=== PATIENT | female | born 1945 | race Two or more races ===

== ENCOUNTER 2017-12-17 14:16 | Emergency (ER) | payer MEDICARE, OTHER ==
[~2017-12-17] VITALS: Ht 162.6 cm; Wt 77.1 kg
[~2017-12-17 14:16] MED LIST: LOSARTAN POTASS25 MG ORAL
--- NOTE | 2017-12-17 15:01 | Emergency Room Report ---
History of Present Illness General Chief Complaint: Lower Extremity Injury Source: Patient, Medical Record Present Illness HPI 72-year-old female presents to the emergency department complaining of 10 out of 10 in severity localized pain to the bilateral knees primarily the left knee as well as the left lateral tib-fib status post mechanical trip and fall yesterday. Patient reports history of arthritis in the left knee however she states she was not having symptoms prior. Patient reports that her knee feels very weak as if it is going to give out underneath her and HOW she fell. Patient denies bruises, open wounds or bleeding. Patient reports some mild swelling she states she has not taken any medication for her symptoms. Patient reports that her pain is exacerbated upon weight-bearing, walking and bending the knees. Patient denies midline neck or back pain. Denies numbness tingling or loss of sensation or gross motor movements of the extremities, incontinence of bowel or bladder. Denies CP, Palpitations, LOC, AMS, dizziness, Changes in Vision, weakness or a sudden severe headache. Allergies: Coded Allergies: No Known Allergies (Unverified , 08/22/15) Patient History Past Medical History: see triage record Past Surgical History: none Pertinent Family History: none Now: No Reviewed Nursing Documentation: PMH: Agreed; PSxH: Agreed Nursing Documentation-PMH Past Medical History: No History, Except For Hx Cardiac Problems: Yes - HYPERLIPIDEMIA Hx Hypertension: Yes Hx Cancer: Yes - right breast CA Hx Gastrointestinal Problems: No Hx Neurological Problems: No Review of Systems All Other Systems: negative except mentioned in HPI Physical Exam Vital Signs Date Time Temp Pulse Resp B/P (MAP) Pulse Ox O2 Delivery O2 Flow Rate FiO2 12/17/17 14:25 97.9 72 16 134/67 95 Room Air 97.9 Sp02 EP Interpretation: reviewed, normal General Appearance: no apparent distress, alert, GCS 15, non-toxic Head: normocephalic, atraumatic Eyes: bilateral eye normal inspection, bilateral eye PERRL ENT: hearing grossly normal, normal voice Neck: full range of motion Respiratory: lungs clear, normal breath sounds, speaking full sentences Cardiovascular #1: regular rate, rhythm, no edema, normal capillary refill Musculoskeletal: back normal, gait/station normal, normal range of motion, tender - TTP to the anterior and lateral left knee, and calf. mild swelling noted, no bruises, obvious deformities or increased laxity. FROM no clicking. mild ttp to the anterior right knee,FROM without pain. Neurologic: alert, oriented x3, responsive, motor strength/tone normal, sensory intact, speech normal, grossly normal Psychiatric: judgement/insight normal Skin: normal color, no rash, warm/dry, well hydrated Medical Decision Making DIANNA Attestation Dr. Recinos is my supervising Physician whom patient management has been discussed with. Diagnostic Impression: Primary Impression: Fibula fracture Qualified Codes: S82.832A - Other fracture of upper and lower end of left fibula, initial encounter for closed fracture Additional Impressions: Knee contusion Qualified Codes: S80.02XA - Contusion of left knee, initial encounter Left knee sprain Qualified Codes: S83.92XA - Sprain of unspecified site of left knee, initial encounter Tibial plateau fracture, left Qualified Codes: S82.142A - Displaced bicondylar fracture of left tibia, initial encounter for closed fracture ER Course 72-year-old female presents to the emergency department complaining of 10 out of 10 in severity localized pain to the bilateral knees primarily the left knee as well as the left lateral tib-fib status post mechanical trip and fall yesterday. Patient reports history of arthritis in the left knee however she states she was not having symptoms prior. Patient reports that her knee feels very weak as if it is going to give out underneath her and HOW she fell. Patient denies bruises, open wounds or bleeding. Patient reports some mild swelling she states she has not taken any medication for her symptoms. Patient reports that her pain is exacerbated upon weight-bearing, walking and bending the knees. Patient denies midline neck or back pain. Denies numbness tingling or loss of sensation or gross motor movements of the extremities, incontinence of bowel or bladder. Denies CP, Palpitations, LOC, AMS, dizziness, Changes in Vision, weakness or a sudden severe headache. Ddx considered but are not limited to Fracture, dislocation, contusion, Sprain/ Strain/Spasm. Vital signs: are WNL, pt. is afebrile H&PE are most consistent with musculoskeletal injury will perform imaging to r/ o fractures/dislocations. ORDERS: - X-ray Left knee 3 views, and Left Tib/Fib 2 views - negative for fx, Dislocation, or significant soft tissue injury, per preliminary read in ED, and signed by DIANNA Oneill, my supervising physician has reviewed, and agrees with my interpretation. ED INTERVENTIONS: - Knee Immobilizer splint applied to the Left Knee by binder technician. Pt. remains neurovascularly intact. --Patient is provided with crutches and instructed on their use DISCHARGE: At this time pt. is stable for d/c to home. Will provide printed patient care instructions, and any necessary prescriptions. Care plan and follow up instructions have been discussed with the patient prior to discharge. Other X-Ray Diagnostic Results Other X-Ray Diagnostic Results #1: X-Ray ordered: Left Knee # of Views/Limited Vs Complete: 3 View Indication: Pain EP Interpretation: Yes PA Xray: Interpretation reviewed, by supervising MD, and agrees with findings. Interpretation: no dislocation, no soft tissue swelling, other - proximal fibula fx- non displaced, questionable non-displaced tibial plateau fx. Impression: Other - abnormal Electronically Signed by: Lori Oneill PA-C Other X-Ray Diagnostic Results #2: X-Ray ordered: Left Tib/Fib # of Views/Limited Vs Complete: 2 View Indication: Pain EP Interpretation: Yes PA Xray: Interpretation reviewed, by supervising MD, and agrees with findings. Interpretation: no dislocation, no soft tissue swelling, other - proximal fibula fx- non displaced, questionable non-displaced tibial plateau fx. Impression: Other - abnormal Electronically Signed by: Lori Oneill PA-C Last Vital Signs Date Time Temp Pulse Resp B/P (MAP) Pulse Ox O2 Delivery O2 Flow Rate FiO2 12/17/17 14:25 97.9 72 16 134/67 95 Room Air 97.9 Disposition: HOME, SELF-CARE Condition: Stable Scripts Ibuprofen* (MOTRIN*) 600 Mg Tablet 600 MG ORAL THREE TIMES A DAY, #30 TAB 0 Refills Prov: Lori Oneill 12/17/17 Hydrocodone Bit/Acetaminophen 5-325* (NORCO 5-325*) 1 Each Tablet 1 TAB ORAL Q6H PRN for For Pain, #20 TAB 0 Refills Prov: Lori Oneill 12/17/17 Patient Instructions: Contusion, Dmyj-[id number], Tibial and Fibular Fracture, Adult Additional Instructions: Take medications as directed. Follow up with an [facility] in 3-5 days, even if your symptoms have resolved. If symptoms persist MRI may be required at the discretion of your PCP or Ortho Specialist. --Please review list of primary care clinics, if you do not already have a primary care provider who can give you an Orthopedic Referral. Return sooner to ED if new symptoms occur, or current symptoms become worse. Do not drink alcohol, drive, or operate heavy machinery while taking [place] as this may cause drowsiness. - Please note that this Emergency Department Report was dictated using [employer] technology software, occasionally this can lead to erroneous entry secondary to interpretation by the dictation equipment. Lori Oneill Dec 17, 2017 15:01
[2017-12-17] MEDS ORDERED: Norco 5mg/325mg tab ORAL ONE (16:30)
[2017-12-17] MEDS ORDERED: NORCO 5-325 TA1 EACH ORAL (16:36)
[2017-12-17] MEDS ORDERED: IBUPROFEN600 MG ORAL (16:36)
[2017-12-17 17:59] VITALS: BP 134/67
--- NOTE | 2017-12-17 18:07 | Diagnostic Imaging Report ---
Indication: Knee pain Technique: 3 views of the left knee Comparison: None Findings: There is a small suprapatellar effusion. On the oblique view, there is a lucency through the medial anterior tibial plateau. Cortical irregularity and lucency of the proximal fibular head is also suspicious for a nondisplaced fracture. There are traction osteophytes of the patella Impression: Lucency through the anterior medial tibial plateau, could indicate a nondisplaced tibial plateau fracture. Correlate with clinical findings, consider MRI for greater specificity Findings suspicious for fracture of the proximal fibula, better visualized on tibiofibular radiograph. Small joint effusion Findings discussed by phone with Dr. Recinos at the time of interpretation
--- NOTE | 2017-12-17 18:08 | Diagnostic Imaging Report ---
Indication: Pain Technique: 2 views of the left tibia and fibula Comparison: Findings: There is a nondisplaced fracture of the fibular head. No other acute fractures. No dislocations. The joint spaces are preserved Impression: Positive for fibular head fracture Findings previously discussed by phone with Dr. Recinos in the emergency room
== END 2017-12-17 18:01 ==
LOC: EMR 15:10
DX: S82.832A Other fracture of upper and lower end of left fibula, initial encounter for closed fracture (principal); S82.142A Displaced bicondylar fracture of left tibia, initial encounter for closed fracture; S83.8X2A Sprain of other specified parts of left knee, initial encounter; S83.92XA Sprain of unspecified site of left knee, initial encounter; M25.562 Pain in left knee; I10 Essential (primary) hypertension; W01.0XXA Fall on same level from slipping, tripping and stumbling without subsequent striking against object, initial encounter; Y93.9 Activity, unspecified; Y92.9 Unspecified place or not applicable; Y99.9 Unspecified external cause status; E78.5 Hyperlipidemia, unspecified; Z85.3 Personal history of malignant neoplasm of breast
CPT/HCPCS: 29515; 99284

== ENCOUNTER 2018-06-12 14:38 | Emergency (ER) | payer MEDICARE, OTHER ==
[~2018-06-12] VITALS: Ht 160 cm; Wt 81.6 kg
[~2018-06-12 14:38] MED LIST changes: +IBUPROFEN600 MG ORAL; +NORCO 5-325 TA1 EACH ORAL
[2018-06-12 14:50] VITALS: BP 181/75
--- NOTE | 2018-06-12 14:50 | NUR ---
ED Nurse Note: PT WALKED IN TO ER TODAY FROM HOME. AOX4. PT C/O ELEVATED BLOOD PRESSURE, HEADACHE, PAIN 10/10, NAUSEA, AND ONE EPISODE OF VOMITING X THIS AM. ON ASSESSMENT, BP: 181/75. STRONG AND EQUAL PULLS AND EXECUTIVE ASSISTANT TO PRESIDENT. MUSCLE STRENGTH 5/5 IN ALL EXTREMITIES. GAIT STABLE.
--- NOTE | 2018-06-12 15:07 | Emergency Room Report ---
History of Present Illness General Chief Complaint: Hypertension Source: Patient Present Illness HPI Patient presents with headache and dizziness that began when she got up this morning. The pain in her head did not wake her up. She's taken her blood pressure intermittently through the day and it's been elevated. This concerned her. She's also had some blurry vision. There's no unilateral weakness or numbness. One point her blood pressure was 190/110. The patient's felt nauseated throughout the day. She also had one episode of vomiting of water in the morning. She is also concerned as she takes losartan. A cousin was stopped from taking it. She's worried that she might endanger from taking losartan. Allergies: Coded Allergies: No Known Allergies (Unverified , 08/22/15) Patient History Past Medical History: see triage record Social History: Denies: smoking, alcohol use, drug use Social History Narrative Reviewed Nursing Documentation: PMH: Agreed; PSxH: Agreed Nursing Documentation-PMH Past Medical History: No History, Except For Hx Cardiac Problems: Yes - HYPERLIPIDEMIA Hx Hypertension: Yes Hx Cancer: Yes - right breast CA Hx Gastrointestinal Problems: No Hx Neurological Problems: No Review of Systems All Other Systems: negative except mentioned in HPI Physical Exam Vital Signs Date Time Temp Pulse Resp B/P (MAP) Pulse Ox O2 Delivery O2 Flow Rate FiO2 06/12/18 14:44 97.9 80 18 163/76 95 Room Air Sp02 EP Interpretation: reviewed, normal General Appearance: well appearing, no apparent distress, GCS 15 Head: normocephalic, atraumatic Eyes: bilateral eye normal inspection, bilateral eye PERRL, bilateral eye EOMI ENT: moist mucus membranes Neck: supple Respiratory: lungs clear, normal breath sounds Cardiovascular #1: regular rate, rhythm Cardiovascular #2: 2+ radial (R) Gastrointestinal: normal inspection, normal bowel sounds, non tender, no mass, non-distended Musculoskeletal: back normal, gait/station normal, normal range of motion Neurologic: alert, oriented x3, director of consumer marketing III-XII nml as tested, motor strength/tone normal, DTRs symmetric, sensory intact, cerebellar normal, normal gait, speech normal Psychiatric: mood/affect normal, anxious Skin: normal inspection, warm/dry Medical Decision Making Diagnostic Impression: Primary Impression: Headache Additional Impressions: Labile hypertension Viral syndrome ER Course Patient presents with headache and dizziness with the blood pressures out of control at home. Differential includes hypertensive urgency, brain bleed, anxiety, labile hypertension amongst others. Patient will be evaluated with EKG , chest x-ray, CT the head and labs. The patient will be treated with Reglan and Benadryl. Improved. BP came down without specific treatment. Discussed findings. Patient stable for outpatient observation and treatment. Laboratory Tests Test 06/12/18 15:44 06/12/18 15:53 06/12/18 16:15 Sodium Level 137 MMOL/L (136-145) Potassium Level 4.3 MMOL/L (3.5-5.1) Chloride Level 104 MMOL/L (98-107) Carbon Dioxide Level 24 MMOL/L (21-32) Anion Gap 9 mmol/L (5-15) Blood Urea Nitrogen 12 mg/dL (7-18) Creatinine 0.7 MG/DL (0.55-1.30) Estimate Glomerular Filtration Rate mL/min (>60) Glucose Level 99 MG/DL (74-106) Calcium Level 9.5 MG/DL (8.5-10.1) Total Bilirubin 0.6 MG/DL (0.2-1.0) Aspartate Amino Transferase (AST) 46 U/L (15-37) H Alanine Aminotransferase (ALT) 65 U/L (12-78) Alkaline Phosphatase 115 U/L (46-116) Total Creatine Kinase 129 U/L (26-308) Troponin I 0.000 ng/mL (0.000-0.056) Pro-B-Type Natriuretic Peptide 16 pg/mL (0-125) Total Protein 8.2 G/DL (6.4-8.2) Albumin 3.7 G/DL (3.4-5.0) Globulin 4.5 g/dL Albumin/Globulin Ratio 0.8 (1.0-2.7) L Urine Color Pale yellow Urine Appearance Clear Urine pH 7 (4.5-8.0) Urine Specific Ward 1.010 (1.005-1.035) Urine Protein Negative (NEGATIVE) Urine Glucose (UA) Negative (NEGATIVE) Urine Ketones Negative (NEGATIVE) Urine Blood Negative (NEGATIVE) Urine Nitrite Negative (NEGATIVE) Urine Bilirubin Negative (NEGATIVE) Urine Urobilinogen Normal MG/DL (0.0-1.0) Urine Leukocyte Esterase Negative (NEGATIVE) White Blood Count 9.6 K/UL (4.8-10.8) Red Blood Count 4.64 M/UL (4.20-5.40) Hemoglobin 14.3 G/DL (12.0-16.0) Hematocrit 42.2 % (37.0-47.0) Mean Corpuscular Volume 91 FL (80-99) Mean Corpuscular Hemoglobin 30.8 PG (27.0-31.0) Mean Corpuscular Hemoglobin Concent 33.9 G/DL (32.0-36.0) Red Cell Distribution Width 11.7 % (11.6-14.8) Platelet Count 311 K/UL (150-450) Mean Platelet Volume 5.7 FL (6.5-10.1) L Neutrophils (%) (Auto) 74.5 % (45.0-75.0) Lymphocytes (%) (Auto) 20.4 % (20.0-45.0) Monocytes (%) (Auto) 3.7 % (1.0-10.0) Eosinophils (%) (Auto) 0.4 % (0.0-3.0) Basophils (%) (Auto) 0.9 % (0.0-2.0) Erythrocyte Sedimentation Rate 56 MM/HR (0-30) H Prothrombin Time 10.4 SEC (9.30-11.50) Prothrombin Time INR 1.0 (0.9-1.1) PTT 26 SEC (23-33) EKG Diagnostic Results Rate: normal Rhythm: NSR ST Segments: no acute changes Rhythm Strip Diag. Results EP Interpretation: yes Rhythm: NSR, no PVC's, no ectopy Chest X-Ray Diagnostic Results Chest X-Ray Diagnostic Results : Chest X-Ray Ordered: Yes # of Views/Limited/Complete: 1 View Indication: Other EP Interpretation: Yes Interpretation: no consolidation, no effusion, no pneumothorax Impression: No acute disease Electronically Signed by: Electronically signed by Honorio Pandya MD CT/MRI/US Diagnostic Results CT/MRI/US Diagnostic Results : Imaging Test Ordered: Head Impression no mass, bleed or sinusitis Status: improved Disposition: HOME, SELF-CARE Condition: Improved Honorio Pandya MD Jun 12, 2018 15:07
[2018-06-12] MEDS ORDERED: DiphenhydrAMINE 50mg/ml Inj IVP ONE (15:15)
[2018-06-12] MEDS ORDERED: Metoclopramide 10mg/2ml Inj IVP ONE (15:15)
--- NOTE | 2018-06-12 15:49 | NUR ---
ED Nurse Note: PT TO CT VIA NATE
--- NOTE | 2018-06-12 15:51 | NUR ---
ED Nurse Note: URINE COLLECTED AND SENT TO LAB.
[2018-06-12 16:13] LABS: ANION GAP 9 mmol/L (5-15); BLOOD UREA NITROGEN 12 mg/dL (7-18); CALCIUM 9.5 MG/DL (8.5-10.1); CARBON DIOXIDE 24 MMOL/L (21-32); CHLORIDE 104 MMOL/L (98-107); CREATININE 0.7 MG/DL (0.55-1.30); POTASSIUM 4.3 MMOL/L (3.5-5.1); SODIUM 137 MMOL/L (136-145)
--- NOTE | 2018-06-12 16:13 | NUR ---
ED Nurse Note: BLOOD REDRAWN AND SENT TO LAB.
[2018-06-12 16:17] LABS: APPEARANCE,URINE CLEAR; BILIRUBIN, URINE NEGATIVE (NEGATIVE); COLOR,URINE PALE YELLOW; GLUCOSE, URINE (UA) NEGATIVE (NEGATIVE); KETONES,URINE NEGATIVE (NEGATIVE); LEUKOCYTE ESTERASE ,URINE NEGATIVE (NEGATIVE); NITRITE,URINE NEGATIVE (NEGATIVE); PH,URINE 7 (4.5-8.0); PROTEIN,URINE NEGATIVE (NEGATIVE); UROBILINOGEN,URINE NORMAL MG/DL (0.0-1.0)
--- NOTE | 2018-06-12 16:21 | Diagnostic Imaging Report ---
Indications: Headache Technique: Spiral acquisitions obtained through the brain. Angled axial and coronal 5 x 5 mm slices were reconstructed. Total dose length product 1372.57 mGycm. CTDI vol(s) 70.38 mGy. Dose reduction achieved using automated exposure control Comparison: 06/12/2018 Findings: No acute intracranial hemorrhage or edema, mass effect, nor midline shift. Normal salazar-white differentiation. Normal-sized ventricles and extra axial CSF spaces. Visualized orbits are unremarkable. There is minimal ethmoid sinus disease. The mastoids are clear. The calvarium is intact. Impression: Negative The CT scanner at [facility] is accredited by the [employer] and the scans are performed using protocols designed to limit radiation exposure to as low as reasonably achievable to attain images of sufficient resolution adequate for diagnostic evaluation.
[2018-06-12 16:23] LABS: ALANINE AMINOTRANSFERASE 65 U/L (12-78); ALBUMIN 3.7 G/DL (3.4-5.0); ALBUMIN/GLOBULIN RATIO 0.8 (1.0-2.7); ALKALINE PHOSPHATASE 115 U/L (46-116); ASPARTATE AMINO TRANSFERASE 46 U/L (15-37); BILIRUBIN,TOTAL 0.6 MG/DL (0.2-1.0); CREATINE KINASE 129 U/L (26-308)
--- NOTE | 2018-06-12 16:23 | Diagnostic Imaging Report ---
Indication: Chest pain Technique: One view of the chest Comparison: 08/22/2015 Findings: No definite acute infiltrates, effusions, or congestion. Apparent hazy opacity of the right mid and lower lungs probably due to overlying soft tissue. The heart is borderline enlarged. Impression: No acute process
[2018-06-12 16:29] VITALS: BP 135/58
[2018-06-12 16:33] LABS: BASOPHILS % (AUTO) 0.9 % (0.0-2.0); EOSINOPHILS % (AUTO) 0.4 % (0.0-3.0); HEMATOCRIT 42.2 % (37.0-47.0); HEMOGLOBIN 14.3 G/DL (12.0-16.0); LYMPHOCYTES % (AUTO) 20.4 % (20.0-45.0); MEAN CORPUSCULAR VOLUME 91 FL (80-99); MONOCYTES % (AUTO) 3.7 % (1.0-10.0); NEUTROPHILS % (AUTO) 74.5 % (45.0-75.0); PLATELET COUNT 311 K/UL (150-450); RED BLOOD COUNT 4.64 M/UL (4.20-5.40); RED CELL DISTRIBUTION WIDTH 11.7 % (11.6-14.8); WHITE BLOOD COUNT 9.6 K/UL (4.8-10.8)
[2018-06-12] MEDS ORDERED: ONDANSETRON ODT4 MG BC (18:06)
[2018-06-12] MEDS ORDERED: TYLENOL325 MG ORAL (18:06)
[2018-06-12 18:21] VITALS: BP 129/63
== END 2018-06-12 18:21 | disposition home or self-care (01) ==
LOC: EMR 15:00
DX: R51 Headache (principal); I10 Essential (primary) hypertension; B34.9 Viral infection, unspecified; R42 Dizziness and giddiness; E78.5 Hyperlipidemia, unspecified; Z85.3 Personal history of malignant neoplasm of breast
CPT/HCPCS: 36415; 70450; 71045; 80053; 81003; 82550; 83880; 84484; 85025; 85610; 85651; 85730; 93005; 96374; 96375; 99284; J1200; J2765

== ENCOUNTER 2018-10-28 09:34 | Outpatient (CLI) | payer MEDICARE, OTHER ==
[~2018-10-28 09:34] MED LIST changes: +ONDANSETRON ODT4 MG BC; +TYLENOL325 MG ORAL
[2018-10-28] MEDS ORDERED: ATENOLOL50 MG ORAL (14:19)
[2018-10-28] MEDS ORDERED: FOSAMAX70 MG ORAL (14:19)
[2018-10-28] MEDS ORDERED: CALCIUM + D3 E1 EACH PO (14:19)
[2018-10-28] MEDS ORDERED: ASPIRIN EC81 MG ORAL (14:19)
[2018-10-28] MEDS ORDERED: ATORVASTATIN CA20 MG ORAL (14:19)
[2018-10-28 14:21] VITALS: BP 133/67
--- NOTE | 2018-10-28 17:45 | Consultation ---
DATE OF CONSULTATION: 10/28/2018 CHIEF COMPLAINT: Chronic GERD. HISTORY OF PRESENT ILLNESS: The patient is a very pleasant 73-year-old female with multiple medical problems, which I will dictate in a second, who was referred to us for evaluation of chronic GERD. It has been going on for long time. The patient is taking omeprazole. She is still having significant reflux, never had endoscopy. Last colonoscopy was 2015, she had no polyps per the patient. PAST MEDICAL HISTORY: 1. Hypertension. 2. Osteoporosis. 3. Hypercholesterolemia. 4. Breast cancer. PAST SURGICAL HISTORY: Left mastectomy. MEDICATIONS: Please see medication reconciliation list. FAMILY HISTORY: Significant for history of pancreatic cancer and skin cancer in the family. SOCIAL HISTORY: The patient denies any tobacco, alcohol, or drug abuse. ALLERGIES: No known allergies. REVIEW OF SYSTEMS: A 10-point review of systems was performed and positive for GERD, . PHYSICAL EXAMINATION: VITAL SIGNS: Temperature 97.2, blood pressure is 120/80, pulse 67, respirations 20. HEENT: Normocephalic and atraumatic. Sclerae anicteric. NECK: Supple. No evidence of obvious lymphadenopathy. CARDIOVASCULAR: Regular rate and rhythm. Plus S1 and S2. No obvious murmur. LUNGS: Clear to auscultation bilaterally. ABDOMEN: Positive bowel sounds. Soft and nontender. No rebound. No guarding. No peritoneal sign. EXTREMITIES: No cyanosis, no clubbing, no edema ASSESSMENT AND PLAN: The patient is a 73-year-old female with persistent GERD, no prior history of endoscopy. Plan is to get an endoscopy scheduled either this week or next week. Meanwhile, we are going to start the patient on Dexilant one tablet p.o. daily and also baclofen 10 mg at bedtime. I want to thank, Dr. Cleveland Paul, for this kind referral. Richard Edward M.D. DR: Josephine JOB#: [id number] CC: Cleveland Paul M.D.; Fax#: [phone]
== END 2018-10-28 11:34 | disposition home or self-care (01) ==
LOC: PAN 09:34
DX: K21.9 Gastro-esophageal reflux disease without esophagitis (principal); I10 Essential (primary) hypertension; M81.0 Age-related osteoporosis without current pathological fracture; E78.00 Pure hypercholesterolemia, unspecified; Z85.3 Personal history of malignant neoplasm of breast; Z90.12 Acquired absence of left breast and nipple
CPT/HCPCS: 99202

== ENCOUNTER 2018-10-31 10:55 | Day surgery (SDC) | payer MEDICARE, OTHER ==
[2018-10-31] VITALS (8 sets, daily range): BP systolic 105–124; BP diastolic 54–72
[~2018-10-31] VITALS: Ht 157.5 cm; Wt 75.3 kg
[~2018-10-31 10:55] MED LIST changes: +ASPIRIN EC81 MG ORAL; +ATENOLOL50 MG ORAL; +ATORVASTATIN CA20 MG ORAL; +CALCIUM + D3 E1 EACH PO; +FOSAMAX70 MG ORAL
[2018-10-31] MEDS ORDERED: VITAMIN D1000 UNI1 ORAL (11:31)
[2018-10-31] MEDS ORDERED: DEXILANT60 MG ORAL (11:31)
[2018-10-31] MEDS ORDERED: BACLOFEN10 MG ORAL (11:31)
[2018-10-31] MEDS ORDERED: NORVASC10 MG ORAL (11:31)
--- NOTE | 2018-10-31 12:30 | Short Stay Surgery H&P ---
History of Present Illness History of Present Illness Chief Complaint see recent office note HPI Marie Rojas is a 73 year old female who was admitted on for GERD Patient History Allergies: Coded Allergies: No Known Allergies (Unverified , 10/31/18) Medication History Scheduled Alendronate Sodium* (Fosamax*), 70 MG ORAL ONCE A WEEK, (Reported) Amlodipine Besylate (Norvasc), 10 MG ORAL DAILY, (Reported) Aspirin Ec* (Aspirin Ec*), 81 MG ORAL DAILY, (Reported) Atorvastatin Calcium* (Atorvastatin Calcium*), Unknown Dose ORAL BEDTIME, ( Reported) Baclofen* (Baclofen*), 10 MG ORAL DAILY, (Reported) Calcium Carb & Cit/Vitamin D3 (Calcium + D3 Er Tablet), 1 EACH PO DAILY, ( Reported) Cholecalciferol (Vitamin D3)* (Vitamin D*), 2,000 UNITS ORAL DAILY, (Reported) Dexlansoprazole (Dexilant), 60 MG ORAL DAILY, (Reported) Discontinued Medications Acetaminophen (Tylenol), 650 MG ORAL Q6H PRN for Prn Pain/Headache/Temp > 101 Discontinued Reason: Pt stopped taking med Hydrocodone Bit/Acetaminophen 5-325* ([place] 5-325*), 1 TAB ORAL Q6H PRN for For Pain Discontinued Reason: discontinued med Ibuprofen* (Motrin*), 600 MG ORAL THREE TIMES A DAY Discontinued Reason: discontinued med Losartan Potassium* (Losartan Potassium*), 50 MG ORAL BID, (Reported) Discontinued Reason: discontinued med Ondansetron Odt* (Zofran Odt*), 4 MG BC EVERY 8 HOURS PRN for Nausea & Vomiting Discontinued Reason: discontinued med Physical Exam Vital Signs Last Vital Signs Date Time Temp Pulse Resp B/P (MAP) Pulse Ox O2 Delivery O2 Flow Rate FiO2 10/31/18 11:52 Room Air 10/31/18 11:39 97.3 69 18 123/65 95 Plan Attestation Are the patient's medical conditions optimized for surgery? Richard Edward MD Oct 31, 2018 12:30
--- NOTE | 2018-10-31 12:30 | Pre-Procedure Note/Attestation ---
Pre-Procedure Note/Attestation Complete Prior to Procedure Planned Procedure: not applicable Procedure Narrative: EGD Indications for Procedure Pre-Operative Diagnosis: GERD Attestation I attest that I discussed the nature of the procedure; its benefits; risks and complications; and alternatives (and the risks and benefits of such alternatives ), prior to the procedure, with the patient (or the patient's legal customer relations representative). I attest that, if there was a reasonable possibility of needing a blood transfusion, the patient (or the patient's legal customer relations representative) was given the [facility] standardized written summary, pursuant to the [employer] [place] Blood Safety Act ([place] Health and Safety Code # 1645, as amended). I attest that I re-evaluated the patient just prior to the surgery and that there has been no change in the patient's H&P, except as documented below: Richard Edward MD Oct 31, 2018 12:30
--- NOTE | 2018-10-31 13:00 | Endoscopy Procedure Note ---
Endoscopy Procedure Note General Indication for Procedure: gerd Procedures Performed: EGD Operative Findings/Diagnosis: gastritis Specimen: yes Pt Tolerated Procedure Well: Yes Estimated Blood Loss: none Anesthesia Anesthesiologist: vale Anesthesia: MAC Inserted Devices Implant(s) used?: No GI Core Measures 50 yrs or older w/o bx or poly: Not Applicable 10yrs. F/U recommended: Not Applicable Richard Edward MD Oct 31, 2018 13:00
--- NOTE | 2018-10-31 14:00 | Immediate Post-Op Evaluation ---
Immediate Post-Op Evalulation Immediate Post-Op Evalulation Procedure: egd Date of Evaluation: Oct 31, 2018 Time of Evaluation: 13:05 Blood Pressure Systolic: 105 Blood Pressure Diastolic: 70 Pulse Rate: 70 Respiratory Rate: 14 O2 Sat by Pulse Oximetry: 99 Temperature (Fahrenheit): 98.6 Pain Score (1-10): 0 Nausea: No Vomiting: No Complications none Patient Status: awake, reacts, patent Hydration Status: adequate Drug: none ElenariJoan garcia CRNA Oct 31, 2018 14:00
--- NOTE | 2018-10-31 14:01 | Anethesia Preoperative Eval ---
Anesthesia Pre-op PMH/ROS General Date of Evaluation: Oct 31, 2018 Time of Evaluation: 12:54 Anesthesiologist: valentin ASA Score: ASA 2 Mallampati Score Class I : Soft palate, uvula, fauces, pillars visible Class II: Soft palate, uvula, fauces visible Class III: Soft palate, base of uvula visible Class IV: Only hard plate visible Mallampati Classification: Class II Surgeon: russel Diagnosis: anemia Surgical Procedure: egd Anesthesia History: none Family History: no anesthesia problems Allergies: Coded Allergies: No Known Allergies (Unverified , 10/31/18) Medications: see eMAR Patient NPO?: Yes NPO Date: Oct 31, 2018 NPO Time: 00:01 Past Medical History Cardiovascular: Reports: HTN Pulmonary: Denies: asthma, COPD, JAZZ, other Gastrointestinal/Genitourinary: Reports: GERD; Denies: CRI, ESRD, other Neurologic/Psychiatric: Denies: dementia, CVA, depression/anxiety, TIA, other Endocrine: Denies: DM, hypothyroidism, steroids, other HEENT: Denies: cataract (L), cataract (R), glaucoma, [place] (L), [place] (R), other Hematology/Immune: Reports: anemia; Denies: DVT, bleeding disorder, other Musculoskeletal/Integumentary: Denies: OA, RA, DJD, DDD, edema, other Other: other - breast ca Anesthesia Pre-op Phys. Exam Physician Exam Last Vital Signs Date Time Temp Pulse Resp B/P (MAP) Pulse Ox O2 Delivery O2 Flow Rate FiO2 10/31/18 13:30 97.9 68 17 111/62 95 Room Air 10/31/18 13:00 3 Airway Exam Mallampati Classification 2 Mallampati Score: Class I Anesthesia Pre-op A/P Studies Pre-op Studies: EKG - sr Risk Assessment & Plan Assessment: no changes Plan: mac Pre-Antibiotics Drug: none Joan Badillo CRNA Oct 31, 2018 14:01
--- NOTE | 2018-10-31 14:02 | 48 Hour Post Anesthesia Eval ---
Post Anesthesia Evaluation Procedure: egd Date of Evaluation: Oct 31, 2018 Time of Evaluation: 14:02 Blood Pressure Systolic: 111 0: 62 Pulse Rate: 52 Respiratory Rate: 14 O2 Sat by Pulse Oximetry: 98 Airway: patent Nausea: No Vomiting: No Hydration Status: adequate Cardiopulmonary Status: stable Mental Status/LOC: patient returned to baseline Post-Anesthesia Complications: none Follow-up care needed: N/A Joan Badillo CRNA Oct 31, 2018 14:02
--- NOTE | 2018-10-31 22:15 | Procedure Note ---
DATE OF PROCEDURE: 10/31/2018 SURGEON: Richard Edward M.D. PROCEDURE: Upper endoscopy with biopsy. ANESTHESIA: Per Joan GASTON. INSTRUMENT: Olympus adult flexible upper endoscope. INDICATION: Chronic GERD and abdominal pain. REASON FOR PROCEDURE: The procedure, risks, benefits, and possible consequences, including hemorrhage, aspiration, perforation and infection, and alternative treatments, were explained to the patient/legal guardian by Dr. Richard Edward and the patient/legal guardian understood and accepted these risks. PROCEDURE IN DETAIL: After informed consent was obtained and the patient was adequately sedated, Olympus upper endoscope was advanced from mouth into the second portion of duodenum and retroflexion was performed in the stomach. GE junction was found to be about 35 cm from the incisors. There was a small hiatal hernia. No obvious esophageal mass or esophagitis. In the stomach, there was diffuse gastritis. Random biopsy from antrum and body was obtained to rule out H. pylori infection. The patient tolerated the procedure very well without any complication. SUMMARY OF FINDINGS: 1. GE junction at 35 cm from the incisors. 2. Small hiatal hernia. 3. Diffuse gastritis status post biopsy. RECOMMENDATIONS: Follow up biopsy results and treat accordingly. Richard Edward M.D. DR: LIBAN JOB#: [id number] CC:
--- NOTE | 2018-11-05 19:23 | Cardiology Report ---
APPROVED REPORT EKG Measurement Heart [id number] [id number] Normal sinus rhythm Normal ECG
== END 2018-10-31 14:10 | disposition home or self-care (01) ==
LOC: GAS 10:55
DX: K21.9 Gastro-esophageal reflux disease without esophagitis (principal); K44.9 Diaphragmatic hernia without obstruction or gangrene; Z79.82 Long term (current) use of aspirin; Z79.899 Other long term (current) drug therapy; I10 Essential (primary) hypertension; Z85.3 Personal history of malignant neoplasm of breast; K29.50 Unspecified chronic gastritis without bleeding
CPT/HCPCS: 93005; 94003; 94150

== ENCOUNTER 2018-11-13 13:10 | Outpatient (CLI) | payer MEDICARE, OTHER ==
[~2018-11-13 13:10] MED LIST changes: +BACLOFEN10 MG ORAL; +DEXILANT60 MG ORAL; +NORVASC10 MG ORAL; +VITAMIN D1000 UNI1 ORAL
[2018-11-13 13:24] VITALS: BP 126/65
--- NOTE | 2018-11-13 15:17 | General Progress Note ---
Assessment/Plan Problem List: (1) Gastritis ICD Codes: K29.70 - Gastritis, unspecified, without bleeding SNOMED: 1956817 (2) Headache ICD Codes: R51 - Headache SNOMED: 72326819 (3) Hypertension ICD Codes: I10 - Essential (primary) hypertension SNOMED: 48888086 Assessment/Plan: ppi baclofen ZANTAC QHS RTC 3 months Subjective ROS Limited/Unobtainable: Yes Allergies: Coded Allergies: No Known Allergies (Unverified , 10/31/18) Objective Last 24 Hour Vital Signs Date Time Temp Pulse Resp B/P (MAP) Pulse Ox O2 Delivery O2 Flow Rate FiO2 11/13/18 13:24 97.4 67 18 126/65 (85) 98 General Appearance: alert EENT: normal ENT inspection Neck: supple Cardiovascular: normal rate Respiratory/Chest: decreased breath sounds Abdomen: normal bowel sounds, non tender, soft Extremities: non-tender Richard Edward MD Nov 13, 2018 15:17
== END 2018-11-13 15:10 | disposition home or self-care (01) ==
LOC: PAN 13:10
DX: K29.70 Gastritis, unspecified, without bleeding (principal); R51 Headache; I10 Essential (primary) hypertension
CPT/HCPCS: 99212